=== PATIENT | female | born 1990 | race Hispanic/Latino ===

== ENCOUNTER 2018-01-11 18:00 | Inpatient (IN) | payer OTHER, MEDICAID ==
[~2018-01-11] VITALS: Ht 165.1 cm; Wt 116.1 kg
[2018-01-11 18:45] LABS: HEMATOCRIT 37.6 % (36-48); MEAN CORPUSCULAR HEMOGLOBIN 28.3 pg (27.0-33.0); MEAN CORPUSCULAR HGB CONC 32.8 g/dL (32.0-36.0); MEAN CORPUSCULAR VOLUME 86.1 fL (79-99); PLATELET COUNT (AUTO) 288 K/uL (130-400); RED BLOOD CELL COUNT(AUTO) 4.37 MIL/uL (4.00-5.50); RED CELL DISTRIBUTION WIDTH 15.6 % (11.0-15.5); WHITE BLOOD COUNT (AUTO) 12.7 K/uL (4.8-10.8)
[2018-01-11] MEDS: LACTATED RINGERS 1000ML 1,000 ML IV PRN (21:19)
[2018-01-11 21:31] LABS: APPEARANCE,URINE Cloudy (CLEAR); BILIRUBIN,URINE Negative (NEGATIVE); COLOR,URINE Yellow (YELLOW); GLUCOSE, URINE (UA) Negative (NEGATIVE); KETONES,URINE >=80 mg/dL (NEGATIVE); LEUKOCYTE ESTERASE ,URINE Large (NEGATIVE); NITRATE,URINE Negative (NEGATIVE); OCCULT BLOOD,URINE Negative (NEGATIVE); PROTEIN,URINE Trace (NEGATIVE)
[2018-01-11 21:45] LABS: RBC,URINE 0-1 /HPF (0-1)
[2018-01-11 21:46] LABS: BACTERIA,URINE Few /HPF (None Seen); SQUAMOUS EPITHELIAL CELL,UR Few /HPF (0-2)
[2018-01-12] MEDS ORDERED: TERBUTALINE SULFATE VIAL 1MG/ML SQ SCH (01:00)
[2018-01-12] MEDS ORDERED: PROMETHAZINE HCL 25 MG/ML 1ML AMPULE IM PRN ×3 (01:00→15:15)
[2018-01-12] MEDS ORDERED: MEPERIDINE-PF 50 MG/ML SYG IM PRN (01:00)
[2018-01-12] MEDS ORDERED: MEPERIDINE-PF 50 MG/ML SYG ONE (01:20)
[2018-01-12] MEDS ORDERED: PROMETHAZINE HCL 25 MG/ML 1ML AMPULE IM ONE (01:21)
[2018-01-12] MEDS ORDERED: TERBUTALINE SULFATE VIAL 1MG/ML SQ ONE (01:21)
[2018-01-12] MEDS: LACTATED RINGERS 1000ML 1,000 ML IV PRN (05:12)
[2018-01-12] MEDS ORDERED: CALDOLOR 800MG+NS 250ML 250 ML IV PRN (09:15)
[2018-01-12] MEDS ORDERED: CEFAZOLIN SODIUM 1 GM VIAL IVP PRN (09:15)
[2018-01-12] MEDS ORDERED: LACTATED RINGERS 1000ML 1,000 ML IV SCH (09:15)
[2018-01-12] MEDS ORDERED: OXYTOCIN 10 USP UNITS/ML IM SCH (09:15)
[2018-01-12] MEDS ORDERED: OXYTOCIN-LR 20 UNITS/1000 ML 1,000 ML IV PRN (13:14)
[2018-01-12] MEDS ORDERED: MEPERIDINE-PF 75 MG/ML SYG IM PRN (13:15)
[2018-01-12] MEDS ORDERED: DEXTROSE 5 %-0.45 % NACL 1,000 ML IV PRN (13:15)
[2018-01-12] MEDS ORDERED: DIPH,PERTUSS(ACELL),TET VAC/PF 0.5 ML VIAL IM PRN (13:15)
[2018-01-12] MEDS ORDERED: SODIUM CHLORIDE 0.9% 10 ML VIAL IVP PRN (13:15)
[2018-01-12] MEDS ORDERED: HYDROCODONE/ACETAMINOPHEN 7.5/325 MG TAB ONE (13:36)
[2018-01-12 13:38] LABS: APPEARANCE,URINE Clear (CLEAR); BILIRUBIN,URINE Negative (NEGATIVE); COLOR,URINE Yellow (YELLOW); GLUCOSE, URINE (UA) Negative (NEGATIVE); KETONES,URINE 15 mg/dL (NEGATIVE); LEUKOCYTE ESTERASE ,URINE Small (NEGATIVE); NITRATE,URINE Negative (NEGATIVE); OCCULT BLOOD,URINE Nonhemolyzed Trace (NEGATIVE); PROTEIN,URINE POS 2+ (NEGATIVE)
[2018-01-12] MEDS ORDERED: HYDROCODONE/ACETAMINOPHEN 5/325 MG TAB ONE (13:38)
[2018-01-12 13:45] LABS: RBC,URINE 0-1 /HPF (0-1)
[2018-01-12 13:48] LABS: BACTERIA,URINE Rare /HPF (None Seen); SQUAMOUS EPITHELIAL CELL,UR Few /HPF (0-2)
[2018-01-12] MEDS ORDERED: ONDANSETRON HCL 4 MG/2 ML 8 MG in SODIUM CHLORIDE 0.9% 50 ML IVP NR (15:15)
[2018-01-12] MEDS ORDERED: ONDANSETRON HCL 4 MG/2 ML VIAL IVP PRN ×2 (15:15)
[2018-01-12] MEDS ORDERED: METOCLOPRAMIDE 10 MG/2 ML VIAL IVP PRN (15:15)
[2018-01-12] MEDS ORDERED: EPHEDRINE SULFATE 50 MG/ML AMPULE IVP PRN (15:15)
[2018-01-12] MEDS ORDERED: HYDROCODONE/ACETAMINOPHEN 5/325 MG TAB PO PRN (15:15)
[2018-01-12] MEDS ORDERED: MORPHINE SULFATE 2 MG/ML 1ML SYG IVP PRN (15:15)
[2018-01-12] MEDS ORDERED: NALOXONE HCL 0.4 MG/1 ML ML IVP PRN ×2 (15:15)
[2018-01-12] MEDS ORDERED: DiphenhydrAMINE HCL 50 MG/ML VIAL IVP PRN (15:15)
[2018-01-12 15:20] VITALS: BP 139/80
[2018-01-12] MEDS ORDERED: PNV71COM PO (15:44)
[2018-01-12 20:19] VITALS: BP 130/72
[2018-01-12] MEDS: CEFAZOLIN 3GM /D5W 100ML 100 ML IV SCH (20:53)
[2018-01-12] MEDS: CALDOLOR 800MG+NS 250ML 250 ML IV SCH (21:30)
[2018-01-13] VITALS (7 sets, daily range): BP systolic 114–138; BP diastolic 63–77
[2018-01-13] MEDS: HYDROCODONE/ACETAMINOPHEN 5/325 MG TAB PO PRN ×3 (00:23→11:33)
[2018-01-13] MEDS: CEFAZOLIN 3GM /D5W 100ML 100 ML IV SCH (05:11)
[2018-01-13] MEDS: CALDOLOR 800MG+NS 250ML 250 ML IV SCH (05:38)
[2018-01-13 06:27] LABS: HEMATOCRIT 28.9 % (36-48); MEAN CORPUSCULAR HEMOGLOBIN 28.3 pg (27.0-33.0); MEAN CORPUSCULAR HGB CONC 32.6 g/dL (32.0-36.0); MEAN CORPUSCULAR VOLUME 86.8 fL (79-99); PLATELET COUNT (AUTO) 200 K/uL (130-400); RED BLOOD CELL COUNT(AUTO) 3.33 MIL/uL (4.00-5.50); RED CELL DISTRIBUTION WIDTH 15.9 % (11.0-15.5); WHITE BLOOD COUNT (AUTO) 11.8 K/uL (4.8-10.8)
[2018-01-13 07:30] LABS: HEPATITIS Bs ANTIGEN SCREEN P Negative (Negative)
[2018-01-13] MEDS: ACETAMINOPHEN-CODEINE 300/30MG TAB PO PRN ×3 (09:10→20:38)
[2018-01-13] MEDS: IBUPROFEN 800 MG TAB PO SCH ×2 (12:55→21:35)
[2018-01-14] MEDS: ACETAMINOPHEN-CODEINE 300/30MG TAB PO PRN (03:43)
[2018-01-14 04:00] VITALS: BP 111/70
[2018-01-14] MEDS: IBUPROFEN 800 MG TAB PO SCH ×2 (05:26→11:55)
[2018-01-14 07:49] VITALS: BP 111/69
[2018-01-14] MEDS: HYDROCODONE/ACETAMINOPHEN 5/325 MG TAB PO PRN (08:51)
[2018-01-14] MEDS ORDERED: DOCUSATE SODIUM 100 MG CAP PO SCH (09:00)
[2018-01-14] MEDS ORDERED: BISACODYL 10 MG SUPP.RECT RC PRN (09:00)
[2018-01-14] MEDS ORDERED: SIMETHICONE 80 MG TAB.CHEW PO PRN (09:00)
[2018-01-14 11:31] VITALS: BP 133/92
== END 2018-01-14 12:40 | disposition home or self-care (01) | DRG 765 ==
LOC: LDH 18:00 → OBSVTOIN 18:00 → WSH 01-12 15:20
PROC: 3E0234Z Introduction of Serum, Toxoid and Vaccine into Muscle, Percutaneous Approach (ICD-10-PCS; 2018-01-12)
PROC: 10D00Z1 Extraction of Products of Conception, Low, Open Approach (ICD-10-PCS; principal; 2018-01-12 12:00)
DX: O34.211 Maternal care for low transverse scar from previous cesarean delivery (principal); D62 Acute posthemorrhagic anemia; N85.8 Other specified noninflammatory disorders of uterus; O36.8130 Decreased fetal movements, third trimester, not applicable or unspecified; Z3A.38 38 weeks gestation of pregnancy; Z37.0 Single live birth; O36.8190 Decreased fetal movements, unspecified trimester, not applicable or unspecified; O69.81X0 Labor and delivery complicated by cord around neck, without compression, not applicable or unspecified; N83.8 Other noninflammatory disorders of ovary, fallopian tube and broad ligament; O90.81 Anemia of the puerperium; Z23 Encounter for immunization; O24.420 Gestational diabetes mellitus in childbirth, diet controlled
CPT/HCPCS: 36415; 59510; 76819; 81001; 82947; 82948; 85027; 86592; 86850; 86900; 86901; 87340; 90715; A4344; A4606; J0690; J1741; J2175; J2550; J2590; J3105; J7120

== ENCOUNTER 2019-02-13 20:11 | Emergency (ER) | payer MEDICAID, OTHER ==
[~2019-02-13 20:11] MED LIST: PNV71COM PO
[2019-02-13] MEDS ORDERED: KETOROLAC TROMETHAMINE 60 MG/2 ML VIAL ONE (22:19)
[2019-02-13] MEDS ORDERED: DIAZEPAM 5 MG TABLET ONE (22:20)
== END 2019-02-13 23:31 | disposition home or self-care (01) ==
LOC: EDH 20:11
DX: S16.1XXA Strain of muscle, fascia and tendon at neck level, initial encounter (principal); F41.9 Anxiety disorder, unspecified; Z98.890 Other specified postprocedural states; V49.49XA Driver injured in collision with other motor vehicles in traffic accident, initial encounter; Y93.89 Activity, other specified; Y92.89 Other specified places as the place of occurrence of the external cause; Y99.8 Other external cause status
CPT/HCPCS: 72125; 81025; 96372; 99285; J1885

== ENCOUNTER 2019-04-18 08:29 | Emergency (ER) | payer OTHER ==
[2019-04-18] MEDS ORDERED: ORPHENADRINE CITRATE 30 MG/ML ML ONE (09:12)
[2019-04-18] MEDS ORDERED: KETOROLAC TROMETHAMINE 60 MG/2 ML VIAL ONE (09:13)
== END 2019-04-18 10:05 | disposition home or self-care (01) ==
LOC: EDH 08:29
DX: S13.4XXA Sprain of ligaments of cervical spine, initial encounter (principal); F41.9 Anxiety disorder, unspecified; Z98.890 Other specified postprocedural states; Z87.891 Personal history of nicotine dependence; X58.XXXA Exposure to other specified factors, initial encounter; Y93.89 Activity, other specified; Y92.098 Other place in other non-institutional residence as the place of occurrence of the external cause; Y99.8 Other external cause status
CPT/HCPCS: 81025; 96372 ×2; 99284; J1885; J2360

== ENCOUNTER 2020-09-26 12:40 | Emergency (ER) | payer OTHER ==
[2020-09-26] MEDS ORDERED: ORPHENADRINE CITRATE 30 MG/ML ML ONE (15:31)
[2020-09-26] MEDS ORDERED: KETOROLAC TROMETHAMINE 30MG/ML ONE (15:31)
[2020-09-26] MEDS ORDERED: HYDROCODONE/ACETAMINOPHEN 5/325 MG TAB ONE (15:31)
== END 2020-09-26 15:57 | disposition home or self-care (01) ==
LOC: EDH 12:40
DX: M43.6 Torticollis (principal); F41.9 Anxiety disorder, unspecified
CPT/HCPCS: 72040; 96372 ×2; 99284; J1885; J2360